=== PATIENT | male | born 1985 | race Caucasian/White ===

== ENCOUNTER → 2016-12-13 | Outpatient (CLI) | payer BC ==
[~2016-12-13] MED LIST: AZIT250T81 PO; CYCL10TA45 PO
[2016-12-13 13:00] VITALS: BP 124/78
--- NOTE | 2016-12-13 13:00 | Urgent Care T Sheet Gen (E) ---
Intake General Temperature (Fahrenheit): 98.3 Pulse: 88 Blood Pressure Systolic: 124 Blood Pressure Diastolic: 78 Respirations: 20 SPO2: 97 Description of Symptoms Patient presents with a stiff neck since morning. Woke up AM with a stiff and painful R posterior neck. Patient initially wondered if he injured himself Friday at softball but doesn't remember anything specific. States he can't tilt his head to the R and rotation to the R is limited due to pain. No UE weakness or numbness. Has had a headache today. Took some Tylenol which didn't help much. History of Present Illness Allergies: Coded Allergies: Penicillins (Verified Allergy, Unknown, 07/19/16) Home Meds Active Scripts Azithromycin (Zithromax Z-Zach)6 Tab/Pkt [id number] Mg PO SEE INSTRUCTIONS #6 TAB Ref 0 Day One: Take 2 tablets by mouth Days Two-Five: Take 1 tablet by mouth Prov:JOSE GUADALUPE SYKES APRN () 07/19/16 Respiratory Constitutional Symptoms: No syptoms reported EENTM: No symptoms reported Respiratory: No symptoms reported Cardiovascular: No symptoms reported Musculoskeletal: Muscle pain Neck pain All Other Systems Reviewed Remaining Systems: All other systems reviewed with negative findings Past Zpzzssz-Qjpsmy-Dqdhke Hx Patient's Social History Alcohol Use: Denies Use Smoking Status: Never smoker Recent foreign travel: No Surgeries/Hospitalizations Hospitalization/Surgery Hx: LT HAND FX, LT NECK LYMPH NODE, RT ACL, RT SHOULDER, LT ELBOW INFECTION Respiratory Respiratory History: None Cardiovascular Cardiovascular History: None Reproductive System Sexually Transmitted Diseases: No Gastrointestinal GI/Endocrine History: None Diabetes Diabetes: No HEENT Impaired Vision: None Hearing Impaired: None Psychosocial Behavior Disorders: Anxiety Physical Exam Physical Exam General Appearance: WD/WN No apparent distress Neurologic/Psychiatric Exam: No motor deficits No sensory deficits Comment Examination of the neck reveals no spinal pain and no pain with palpation over the paraspinal muscles. L side of neck and trapezius muscle is non tender. Forward flexion and R deviation is limited to pain. Extension, L deviation and rotation is normal and not painful. Pain with palpation over the R splenius capitus muscle. Spasm is noted over the area. R trapezius is not painful. Departure Urgent Care Impression Impression: Primary Impression: Neck muscle spasm Departure Disposition: 01 HOME OR SELF-CARE Condition: Stable Referrals: JENNIFER KINNEY MD (PCP) Additional Instructions: I have started the patient on Flexeril 10mg TID prn spasm. Advised on potential for drowsiness Encouraged heating pad, Ibuprofen 800mg TID prn inflammation/pain Return as needed Patient understands DC instructions. All questions were answered. Scripts Cyclobenzaprine HCl (Flexeril)10 Mg [id number] Mg PO TID PRN SPASMS #15 TAB Ref 0 Prov:FAMILIA RANGEL 12/13/16 End of report . FAMILIA RANGEL December 13, 2016 13:00
== END ==
LOC: MHUC 11:55
PROVIDERS: ATTEND Physician Assistant
DX: M62.838 Other muscle spasm (principal); M54.2 Cervicalgia
CPT/HCPCS: 99213